=== PATIENT | female | born 1960 | race Caucasian/White ===

== ENCOUNTER 2017-11-24 16:27 | Inpatient (IN) | payer OTHER ==
[~2017-11-24] VITALS: Ht 170.2 cm; Wt 44.1 kg
[~2017-11-24 16:27] MED LIST: ALBU0.0939; DEPO SHOT; [UNRECOGNIZED DRUG - OTHER]
--- NOTE | 2017-11-24 16:28 | NUR ---
PT BIBA BLS TO BED 4
[2017-11-24 16:30] VITALS: BP 124/91
--- NOTE | 2017-11-24 16:31 | NUR ---
DR REN EVALUATING PT AT BEDSIDE
--- NOTE | 2017-11-24 16:35 | NUR ---
57YO F BIBA FOR 5150 HOLD PER [place] [employer] FOR GRAVELY DISABLED AND DANGER TO OTHERS. 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 DAUGHTER WHO IS VISITING HER CALLED 911 BECAUSE PATIENT STARTED THROWINGTHINGS IN THE HOUSE AND THROUGH ALL WINDOWS IN THE HOME, AND PATIENT NOT TAKING HER PSYCH. MEDS. AND NOT EATING. DAUGHTER ALSO THINKS THAT SHE IS UNDER THE INFLUENCE. LS CLEAR, BS ACTIVE X4, PT DENIEAS AND PAIN. PT CLOTHING WERE SOKED IN URINE UPON ER ARRIVAL. WET CLOTHING REMOVED AND SENT WITH SECURITY. GOWN PROVIDED. HX: BIPOLAR,NOT TAKING MEDS. DR REN MADE AWEAR. WILL CONTUNY TO MONITOR
[2017-11-24] MEDS ORDERED: NACL 0.9% 1,000 ML IV ONE ×2 (16:50→19:50)
[2017-11-24] MEDS ORDERED: LORazepam 2 MG/ML VIAL IVP ONE (16:50)
--- NOTE | 2017-11-24 16:54 | NUR ---
XRAY AT BEDSIDE
[2017-11-24 17:18] LABS: BASOPHILS % (AUTO) 0.7 % (0.0-2.0); EOSINOPHILS # (AUTO) 0.1 K/uL (0-0.4); EOSINOPHILS % (AUTO) 1.2 % (0.0-4.0); HEMOGLOBIN 12.9 g/dL (12.0-16.0); LYMPHOCYTES # (AUTO) 1.7 K/uL (2.5-16.5); LYMPHOCYTES % (AUTO) 29.9 % (20.5-51.1); MEAN CORPUSCULAR HEMOGLOBIN 31 pg (27-31); MEAN CORPUSCULAR HGB CONC 33 g/dL (33-37); MEAN CORPUSCULAR VOLUME 94.5 fL (80-94); MONOCYTES # (AUTO) 0.5 K/uL (0.8-1.0); MONOCYTES % (AUTO) 8.9 % (1.7-9.3); NEUTROPHILS # (AUTO) 3.4 K/uL (1.8-7.7); NEUTROPHILS % (AUTO) 59.3 % (42.2-75.2); PLATELET COUNT (AUTO) 203 K/uL (140-450); RED BLOOD CELL COUNT(AUTO) 4.13 MIL/uL (4.20-5.40); RED CELL DISTRIBUTION WIDTH 13.9 % (11.6-13.7); WHITE BLOOD COUNT (AUTO) 5.7 K/uL (4.8-10.8)
[2017-11-24 17:34] LABS: ALBUMIN 4.3 g/dL (3.4-5.0); ANION GAP 16.2 (8-16); ASPARTATE AMINOTRANSFERASE 21 U/L (15-37); CARBON DIOXIDE 24.9 mmol/L (21-32); CHLORIDE 103 mmol/L (98-107); CREATININE 0.7 mg/dL (0.6-1.3); GFR ARICAN-AMERICAN 112 mL/min (>90); GLUCOSE 113 mg/dL (74-106); POTASSIUM 3.1 mmol/L (3.5-5.1); SALICYLATE 3.7 mg/dL (2.8-20.0); SODIUM SERUM 141 mmol/L (136-145); TOTAL BILIRUBIN 0.8 mg/dL (0.0-1.0); UREA NITROGEN, BLOOD 17 mg/dL (7-18)
[2017-11-24 17:51] LABS: ACETAMINOPHEN < 0.5 ug/ml (10-30)
--- NOTE | 2017-11-24 18:03 | NUR ---
PT APEARS TO BE SLEEPING AND IN NO APPEARENT DISTRESS
--- NOTE | 2017-11-24 18:04 | NUR ---
VSS AND RESP EVEN AND UNLABORED
--- NOTE | 2017-11-24 18:33 | NUR ---
# 14 FR Morrison straight catheter utilizing sterile technique PER DR REN. Immediate return of 85 ml ASHTYN CLEAR urine noted. Urine sample collected and sent to lab. Pt tolerated procedure WELL.
[2017-11-24] MEDS ORDERED: POTASSIUM CHLORIDE 10 MEQ TABER PO ONE ×2 (18:45→20:55)
--- NOTE | 2017-11-24 18:45 | NUR ---
PER DR REN , HOLD PO POTASSIUM TILL PT IS MORE ALERT
[2017-11-24 18:50] LABS: APPEARANCE,URINE CLEAR (CLEAR); BILIRUBIN,URINE 1+ (NEGATIVE); BLOOD, URINE NEGATIVE (NEGATIVE); COLOR,URINE YELLOW (YELLOW); LEUKOCYTE ESTERASE ,URINE NEGATIVE (NEGATIVE); NITRITE, URINE NEGATIVE (NEGATIVE); PH,URINE 6.5 (5.0-9.0); UGLUCOSE NEGATIVE (NEGATIVE)
[2017-11-24 18:57] LABS: BARBITURATE, URINE NEG. ng/ml (NEG <=200); BENZODIAZEPINE, URINE NEG. ng/mL (NEG <=200); CANNABINOID, URINE NEG. ng/mL (NEG <=50); COCAINE, URINE NEG. ng/mL (NEG <=300); OPIATE, URINE NEG. ng/mL (NEG <=2000); PHENCYCLIDINE SCREEN,URINE NEG. ng/mL (NEG <=25)
[2017-11-24 19:18] LABS: RBC,URINE 3-10 (FEW) /HPF (0-5); WBC,URINE 0-5 (RARE) /HPF (0-5)
--- NOTE | 2017-11-24 19:19 | NUR ---
REPORT GIVEN TO JASVIR DOMINGUEZ FOR CONTINUITY OF CARE
--- NOTE | 2017-11-24 19:30 | NUR ---
PT SLEEPING IN BED, VSS, WILL CONTINUE TO MONITOR.
--- NOTE | 2017-11-24 19:35 | NUR ---
BRUISING NOTED TO UNDER EYES BL. PERRL
[2017-11-24] MEDS ORDERED: FLUMAZENIL 0.5 MG/5 ML VIAL IVP ONE (20:30)
--- NOTE | 2017-11-24 20:30 | NUR ---
PT LAYING IN BED, VSS, WILL CONTINUE TO MONITOR.
--- NOTE | 2017-11-24 21:40 | NUR ---
PT TAKEN TO CT SCAN W/ EMT
--- NOTE | 2017-11-24 22:12 | NUR ---
ADMITTING TO CALL ANDRESSA FOR ADMISSION
--- NOTE | 2017-11-24 22:15 | NUR ---
PT SLEEPING IN BED, AROUSABLE TO VERBAL STIMULI.
--- NOTE | 2017-11-24 22:23 | NUR ---
OPAL WILLIAMSON ADMITTING PT TO BE ADMITTED TO [facility]
--- NOTE | 2017-11-24 22:28 | NUR ---
SPOKE TO PHYLLIS FROM [facility]; WAITING FOR CALL BACK FROM ASSISTANT GM OF CONTENT & DELIVERY DR. HERRING
--- NOTE | 2017-11-24 22:35 | NUR ---
# 16FR Morrison catheter with ml utilizing sterile technique. Immediate return of 350 ml DARK, CLEAR, YELLOW urine noted. Bedside drainage bag placed below level of bladder. Urine sample collected and sent to lab. Pt tolerated procedure WELL.
[2017-11-24] MEDS ORDERED: LORazepam 2 MG/ML VIAL IVP PRN (22:55)
[2017-11-24] MEDS ORDERED: ONDANSETRON 4 MG/2 ML VIAL IVP PRN (22:55)
--- NOTE | 2017-11-24 23:01 | NUR ---
PT IN BED SLEEPING, NO NEW NEEDS AT THIS TIME.
[2017-11-24] MEDS ORDERED: FUROSEMIDE 40 MG/4 ML VIAL IVP ONE (23:15)
--- NOTE | 2017-11-24 23:32 | NUR ---
PT TAKEN TO THE FLOOR WITH ALBERTO TAY
--- NOTE | 2017-11-24 23:32 | NUR ---
Patient will be admitted to care of DR. BURNETTE. Admited to MED/SURG. Will go to [id number]. Belongings list completed. Report to KM.
[2017-11-24 23:45] VITALS: BP 100/65
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
--- NOTE | 2017-11-25 00:35 | NUR ---
PAGED DR NIMA HASTINGS CIRCUS ROUSTABOUT . CALLED BACK AND SHE SAID OK TO HAVE ONE ON ONE SITTER.
[2017-11-25] MEDS: NACL 0.9% 1,000 ML IV SCH ×3 (01:55→10:00)
--- NOTE | 2017-11-25 01:55 | NUR ---
IVF NS @100 ML /HR STARTED ON LT FA#20.
[2017-11-25] MEDS: ACETAMINOPHEN 325 MG TAB PO PRN ×2 (02:49→09:43)
--- NOTE | 2017-11-25 02:49 | NUR ---
AWAKE, C/O PAIN ON BOTH LEGS. MEDICATED ORDERED. WILL CONTINUE TO MONITOR.
--- NOTE | 2017-11-25 04:30 | NUR ---
PT IS ASLEEP. NO S/S OF ANY DISCOMFORT NOTED. ONE ON ONE SITTER IN ATTENDANCE.
--- NOTE | 2017-11-25 06:00 | NUR ---
SCD MACHINE REQUESTED FROM LENS GRINDER.
--- NOTE | 2017-11-25 06:15 | NUR ---
TRIED CONTACTING PEDRO, PT'S DAUGHTER TO GET SOME MEDICAL INFORMATION ABOUT PT BUT PHONE JUST ALWAYS BUSY. WILL ENDORSE TO AM NURSE.
--- NOTE | 2017-11-25 07:05 | NUR ---
ENDORSED PT IN STABLE CONDITION TO AM NURSE.
--- NOTE | 2017-11-25 07:06 | NUR ---
RECEIVED REPORT FROM GEOPHYSICAL LABORATORY SUPERVISOR NURSE MK AT BEDSIDE FOR CONTINUITY OF CARE. PT IS AAOX1. INTRODUCED SELF. PT IS CALM LYING IN BED. LUNG SOUNDS DIMINISHED. ON RA. O2 SAT 98%. NO SOB. SKIN WARM AND DRY. BRUISES ON BILATERAL UPPER CHEEKS AND LOWER EYES. IV TO L FA 20G INTACT WITH NS @100ML/HR. MOTA CATHETER IN PLACE. EMPTIED 1600ML OF STRAW COLORED URINE. ATTEMPTED TO APPLY SCDS ON BLE. PT REFUSED SCDS. NO SIGNS OF DISTRESS. PT SLEEPING IN BED WITH VISIBLE RESPIRATIONS. BED IN LOW POSITION, ALARM ON, WHEELS LOCKED. 1:1 SITTER. WILL CONTINUE CLOSE OBSERVATION.
[2017-11-25 07:14] LABS: BASOPHILS % (AUTO) 0.4 % (0.0-2.0); EOSINOPHILS # (AUTO) 0.1 K/uL (0-0.4); EOSINOPHILS % (AUTO) 1.6 % (0.0-4.0); HEMATOCRIT 39.3 % (36-48); MEAN CORPUSCULAR HEMOGLOBIN 32 pg (27-31); MEAN CORPUSCULAR HGB CONC 33 g/dL (33-37); MEAN CORPUSCULAR VOLUME 95.1 fL (80-94); MONOCYTES # (AUTO) 0.5 K/uL (0.8-1.0); MONOCYTES % (AUTO) 8.3 % (1.7-9.3); NEUTROPHILS # (AUTO) 4.6 K/uL (1.8-7.7); NEUTROPHILS % (AUTO) 73.7 % (42.2-75.2); PLATELET COUNT (AUTO) 181 K/uL (140-450); RED BLOOD CELL COUNT(AUTO) 4.13 MIL/uL (4.20-5.40); RED CELL DISTRIBUTION WIDTH 14.2 % (11.6-13.7); WHITE BLOOD COUNT (AUTO) 6.3 K/uL (4.8-10.8)
[2017-11-25 08:00] VITALS: BP 106/65
--- NOTE | 2017-11-25 08:00 | NUR ---
PT AWAKE NOW EATING BREAKFAST. ASSISTED WITH TRAY. NO SIGNS OF DISTRESS. 1:1 SITTER AT BEDSIDE. WILL CONTINUE TO MONITOR.
--- NOTE | 2017-11-25 08:09 | NUR ---
FAXED INFORMATION AND COPY OF HOLD TO PENDING SALE TO [facility] [phone] PHONE [phone].
--- NOTE | 2017-11-25 08:28 | NUR ---
FAXED CLINICALS FOR [facility] [phone] PHONE [phone] X [phone] REJI
[2017-11-25 08:48] LABS: ALBUMIN 3.6 g/dL (3.4-5.0); ANION GAP 14.8 (8-16); CARBON DIOXIDE 25.5 mmol/L (21-32); CREATININE 0.6 mg/dL (0.6-1.3); POTASSIUM 3.3 mmol/L (3.5-5.1); TOTAL BILIRUBIN 0.8 mg/dL (0.0-1.0)
--- NOTE | 2017-11-25 09:08 | NUR ---
PATIENT HAS BEEN SCREENED AND CATEGORIZED HIGH NUTRITION RISK. PATIENT WILL BE SEEN WITHIN 1-2 DAYS OF ADMISSION. 11/25/17 11/26/[address]
--- NOTE | 2017-11-25 09:43 | NUR ---
PT COMPLAINED OF PAIN ON BILATERAL FEET. ADMINISTERED TYLENOL FOR PAIN. PT WAS STATING "I DON'T KNOW WHY THEY PUT THIS THING IN ME" POINTING AT MOTA CATHETER. EXPLAINED TO PT REASON FOR MOTA. PT STATED "WELL I DON'T LIKE IT." PT SITTING UP IN BED, UNCOOPERATIVE BUT QUIET AT THIS TIME. 1:1 SITTER AT BEDSIDE. WILL CONTINUE TO MONITOR.
--- NOTE | 2017-11-25 10:09 | NUR ---
TRIED TO CALL PEDRO ESTUARDO'S DAUGHTER AT [phone] BUT LINE IS BUSY
--- NOTE | 2017-11-25 10:40 | NUR ---
PAGED DR. BURNETTE AND REPORTED K 3.3. AND THAT PT COMPLAINED OF F/C. RECEIVED ORDER FOR POTASSIUM AND D/C MOTA
[2017-11-25] MEDS ORDERED: POTASSIUM CHLORIDE 10 MEQ TABER PO SCH (11:30)
--- NOTE | 2017-11-25 11:45 | NUR ---
ATTEMPTED TO GIVE K-DUR ORDERED. PT SAID "I'M GOING BACK TO SLEEP." WILL TRY TO GIVE MED LATER
--- NOTE | 2017-11-25 12:13 | NUR ---
PT EATING LUNCH TRAY. NO SIGNS OF DISTRESS. 1:1 SITTER AT BEDSIDE. WILL CONTINUE TO MONITOR.
--- NOTE | 2017-11-25 13:20 | NUR ---
D/C MOTA CATHETER. 300 ML URINE NOTED. PT TOLERATED WELL. LYING IN BED. NO SIGNS OF DISTRESS. 1:1 SITTER AT BEDSIDE. WILL CONTINUE TO MONITOR.
--- NOTE | 2017-11-25 14:03 | NUR ---
11/25/17 RD INITIAL ASSESSMENT COMPLETED PLEASE REFER TO NUTRITION ASSESSMENT UNDER CARE ACTIVITY FOR ESTIMATED NUTRITIONAL NEEDS. 1. CONTINUE REGULAR DIET TOLERATED 2. RECOMMEND SNACKS TID. 3. RD TO FOLLOW-UP 3-5 DAYS, MODERATE RISK SADIE REHMAN RD
--- NOTE | 2017-11-25 14:22 | NUR ---
PT SLEEPING WITH VISIBLE RESPIRATIONS. NO SIGNS OF DISTRESS. 1:1 SITTER AT BEDSIDE. WILL CONTINUE TO MONITOR.
--- NOTE | 2017-11-25 15:00 | NUR ---
DR. MCGOWAN CAME IN AND SPOKE WITH PT. MEDICALLY CLEARED PT.
--- NOTE | 2017-11-25 15:57 | NUR ---
RECEIVED CALL FROM [facility] IN [place]. SAID THERE IS BED AVAILABLE IN [address] BUILDING ROOM [address]. PT WILL BE UNDER DR. FRANK. NURSE TO CALL FOR REPORT AT [phone]. ADDRESS IS [address] [place] [address]. [place] [address]. WILL CALL BACK FOR TRANSPORTATION LABOR ECONOMICS PROFESSOR TIME WHEN PT D/C.
--- NOTE | 2017-11-25 16:47 | NUR ---
TRIED TO TAKE PT'S VS. PT REFUSED AND STATED "NO YOU'RE NOT, YOU'RE NOT TOUCHING ME." PT WENT BACK TO SLEEP. 1:1 SITTER AT BEDSIDE. WILL CONTINUE TO MONITOR.
--- NOTE | 2017-11-25 18:06 | NUR ---
PAGED DR. DARNELL FOR PSYCH CONSULT.
--- NOTE | 2017-11-25 19:23 | NUR ---
ENDORSED PT TO MARBLE SETTER HELPER NURSE MK AT BEDSIDE FOR CONTINUITY OF CARE. 1:1 SITTER AT BEDSIDE. PT IN STABLE CONDITION.
--- NOTE | 2017-11-25 19:24 | NUR ---
RECEIVED PT IN STABLE CONDITION FROM AM NURSE. PT IS ASLEEP. BUT AROUSE WHEN NAME CALLED. ON 0NE ON ONE SITTER AT BEDSIDE. NO S/S OF ANY DISCOMFORT NOTED. HL ON THE LT FA#20. BED ON LOW POSITION. WAITING FOR DR. DARNELL TO COME AND EVALUATE PT. WILL CLOSELY MONITOR PT.
--- NOTE | 2017-11-25 20:03 | NUR ---
PEDRO ,PT'S DAUGHTER JUST CALLED AND ASKED SOME UPDATE ON HER MOM CONDITION. MADE HER AWARE THAT IF CLEARED BY DR. DARNELL FOR DISCHARGE THEN WILL GO TO [facility]. SHE HAS SOME CONCERN ON THE PLACE FOR IT IS TOO FAR FROM HER . SHE PREFER IF THEY CAN FIND A CLOSER PLACE LIKE [place] FOR SHE SAID SHE LIVES IN [place]. SHE WILL CALL AGAIN TOMORROW TO DISCUSS THIS WITH CORPORATE TREASURER . SHE LEFT HER PHONE # .
--- NOTE | 2017-11-25 23:02 | NUR ---
Art from [facility] who assist in placing 5150 patients to [facility] called and gave us a bed to send the patient to [facility], [address] [place] [address] building room [address]A. to call report at [phone]. Called Alexandrea at the [facility] and informed me if we do not send the patient today, we will lose the bed. Patient will leave today
--- NOTE | 2017-11-25 23:10 | NUR ---
CALLED [facility] . REPORT GIVEN TO DANIELLA REGARDING PT GOING TO ROOM 119A. TO TAKE CARE . WILL CALL AGAIN WHEN PT IS READY TO GO BY AMBULANCE.
--- NOTE | 2017-11-25 23:55 | NUR ---
CALLED PEDRO , DAUGHTER AND MADE HER AWARE THAT PT HAS TO BE DC TO [facility] BED HAS BEEN ALREADY AVAILABLE .
[2017-11-26] VITALS: BP 116/73
--- NOTE | 2017-11-26 00:08 | NUR ---
Called Nancy, and told Nancy that family member refused pt to go to [facility] because it is to far. Nancy stated that pt has to go tonight to [facility]
--- NOTE | 2017-11-26 00:10 | NUR ---
Called Mesha [phone], and explained to her that pt will be transferred tonight to [facility]. Mesha still refused and explained it to her that [facility]
--- NOTE | 2017-11-26 00:15 | NUR ---
DESIRE,SUPERVISOR ENGINE REPAIR CALLED AND SAID PT HAS TO GO . [facility] HERE . PICKED UP PT GOING TO [address] FRANK . PT ID BAND, ALLERGY BAND ,YELLOW BAND AND IV ACCESS REMOVED. SECURITY TO MEET TRANSPORTER IN PARKING LOT FOR ANY BELONGINGS OF PT.
== END 2017-11-26 00:15 | DRG 52 ==
LOC: MED 16:27 → MTU 22:59
PROVIDERS: ADMIT Internal Medicine Pulmonary Disease; ATTEND Internal Medicine Pulmonary Disease
DX: G92 Toxic encephalopathy (principal); Z78.1 Physical restraint status; I10 Essential (primary) hypertension; E86.0 Dehydration; E86.9 Volume depletion, unspecified; F15.10 Other stimulant abuse, uncomplicated; J44.9 Chronic obstructive pulmonary disease, unspecified; Z88.1 Allergy status to other antibiotic agents; Z88.0 Allergy status to penicillin; Z91.19 Patient's noncompliance with other medical treatment and regimen; Z88.6 Allergy status to analgesic agent
CPT/HCPCS: 36415; 51702; 70450; 71045; 80053; 80305; 81001; 82550; 82948; 84484; 85025; 87081; 93005; 96361; 96374; 96375; 99285; C1758; G0480; G0482; J1940; J2060; J3490; J7030; Q0092